=== PATIENT | female | born 1955 | race Caucasian/White ===

== ENCOUNTER → 2020-03-22 | Outpatient (CLI) | payer OTHER ==
[~2020-03-22] MED LIST: ANTIVERT 25MG T25 MG PO; ASPIR 8181 MG PO; ATORVASTATIN CA20 MG PO; CALCIUM500 MG PO; CRESTOR 10 MG T10 MG PO; CRESTOR20 MG PO; ELIQUIS5 MG PO; ESTRADIOL TP; ESTRADIOL1 EAC5 TD; FAMOTIDINE20 MG PO; FLONASE 0.05% N16 GM; FLORINEF 0.1 M0.1 MG PO; HEARTBURN RELIE20 MG PO; IMDUR ER TAB 3030 MG PO; LEVAQUIN500 MG PO; METOPROLOL SUCC25 MG PO; METOPROLOL TART25 MG PO; NITROSTAT0.4 MG SL; PLAVIX 75 MG TA75 MG PO; PRAVACHOL80 MG PO; PREDNISONE PO; PROAMATINE 2.52.5 MG PO; PROTONIX 20 MG20 MG PO; RANEXA1000 MG PO; RANOLAZINE ER500 MG PO; TOLTERODINE TART2 M1 PO; TYLENOL #3 PO; VITAMIN B-121000 MC3 PO; VITAMIN E200 UNI1 PO; ZETIA10 MG PO; ZOFRAN 4 MG TAB4 MG PO; ZOFRAN4 MG PO
== END ==
LOC: MAMO 10:44
DX: Z12.31 Encounter for screening mammogram for malignant neoplasm of breast (principal)
CPT/HCPCS: 77063; 77067

== ENCOUNTER → 2020-07-16 | Outpatient (CLI) | payer OTHER | LOC: EXRD 12:35 | DX: I70.208 Unspecified atherosclerosis of native arteries of extremities, other extremity (principal); I65.23 Occlusion and stenosis of bilateral carotid arteries; I70.201 Unspecified atherosclerosis of native arteries of extremities, right leg | CPT/HCPCS: 93880; 93931 ==

== ENCOUNTER → 2021-05-02 | Outpatient (CLI) | payer OTHER | LOC: KOH-I 05-01 14:30 | DX: Z87.891 Personal history of nicotine dependence (principal) | CPT/HCPCS: 71271 ==

== ENCOUNTER → 2021-06-13 | Outpatient (CLI) | payer OTHER | LOC: HEART 5 09:00 | DX: I25.119 Atherosclerotic heart disease of native coronary artery with unspecified angina pectoris (principal); I08.1 Rheumatic disorders of both mitral and tricuspid valves | CPT/HCPCS: 78452; 93306; A9502; J2785 ==

== ENCOUNTER → 2021-07-05 | Outpatient (CLI) | payer OTHER | LOC: NM 12:26 | DX: R19.8 Other specified symptoms and signs involving the digestive system and abdomen (principal) | CPT/HCPCS: 78226; A9537 ==

== ENCOUNTER → 2021-08-01 | Day surgery (SDC) | payer OTHER | END | disposition home or self-care (01) | LOC: OR 07:30 | DX: R10.13 Epigastric pain (principal); K59.09 Other constipation; I10 Essential (primary) hypertension; I25.2 Old myocardial infarction; Z87.891 Personal history of nicotine dependence; Z79.82 Long term (current) use of aspirin; Z79.899 Other long term (current) drug therapy | CPT/HCPCS: J2704; J7040 ==

== ENCOUNTER → 2021-09-05 | Outpatient (CLI) | payer OTHER | LOC: CT 08:08 | DX: R10.10 Upper abdominal pain, unspecified (principal); K82.8 Other specified diseases of gallbladder; R19.5 Other fecal abnormalities | CPT/HCPCS: 36415; 74183; 82565; 84520; A9577 ==

== ENCOUNTER 2021-10-29 11:28 | Emergency (ER) | payer OTHER ==
[2021-10-29 12:23] LABS: RED BLOOD COUNT 3.67 M/UL (4.00-5.10)
[2021-10-29 12:45] LABS: BUN/CREATININE RATIO 23 (0-10)
== END 2021-10-29 17:31 | disposition home or self-care (01) ==
LOC: ER1 11:28
PROVIDERS: Physician Assistant Medical
DX: R07.89 Other chest pain (principal); R55 Syncope and collapse; I10 Essential (primary) hypertension; I25.2 Old myocardial infarction; Z91.041 Radiographic dye allergy status
CPT/HCPCS: 70450; 71045; 80053; 82550; 82553; 82962; 83880; 84439; 84443; 84484; 85025; 93005; 96374; 96375; 96376; 99285; J2270; J2405